=== PATIENT | male | born 1995 | race Caucasian/White ===

== ENCOUNTER 2017-07-10 23:10 | Emergency (ER) | payer BC, OTHER ==
[~2017-07-10] VITALS: Ht 182.9 cm; Wt 75.0 kg
[2017-07-10 23:10] VITALS: BP 185/86
--- NOTE | 2017-07-11 00:50 | REPUSA ---
CLINICAL HISTORY: Pain. COMMENTS: Two views of the tibia and fibula were obtained without prior studies for comparison. Chronic calcifications of the medial collateral ligament. Evaluation reveals no evidence of fracture, dislocation or degenerative change. There is no evidence of soft tissue swelling, effusion or radiopaque foreign body. IMPRESSION: Unremarkable tibia and fibula. Thank you for your kind referral of this patient.
[2017-07-11] MEDS ORDERED: NORCO 5/325MG TABLET (BULK FOR ED) PO ONE (01:00)
== END 2017-07-11 01:09 | disposition home or self-care (01) ==
LOC: M ED 23:10
DX: M25.562 Pain in left knee (principal)